=== PATIENT | male | born 1995 | race Caucasian/White ===

== ENCOUNTER 2024-12-13 01:22 | Outpatient (CLI) | payer OTHER, SELFPAY | END 2024-12-13 01:23 | disposition home or self-care (01) | LOC: AMB 12-14 14:13 | PROVIDERS: Visit Provider Family Medicine | DX: S00.91XA Abrasion of unspecified part of head, initial encounter (principal); Y92.9 Unspecified place or not applicable | CPT/HCPCS: A0998 ==

== ENCOUNTER 2025-07-02 10:32 | Outpatient (CLI) | payer BC, SELFPAY | END 2025-07-02 10:33 | disposition home or self-care (01) | LOC: FBOREF 10:34 | PROVIDERS: PCP Family Medicine; Visit Provider Family Medicine | DX: F10.90 Alcohol use, unspecified, uncomplicated (principal); Z13.9 Encounter for screening, unspecified; Z13.6 Encounter for screening for cardiovascular disorders | CPT/HCPCS: 80048; 80061 ==